=== PATIENT | female | born 1980 | race Caucasian/White ===

== ENCOUNTER → 2016-11-29 | Outpatient (CLI) | payer BC ==
[~2016-11-29] MED LIST: IBUP600T44 PO; PRENTAB26 PO
== END | disposition home or self-care (01) ==
LOC: C.LABSPEC 20:00
PROVIDERS: ATTEND Obstetrics & Gynecology
DX: Z34.83 Encounter for supervision of other normal pregnancy, third trimester (principal)

== ENCOUNTER 2016-12-18 22:41 | Inpatient (IN) | payer BC ==
[~2016-12-18] VITALS: Ht 157.5 cm; Wt 67.5 kg
[2016-12-18] MEDS ORDERED: LACTATED RINGER'S 1000ML 1,000 ML IV PRN (22:47)
[2016-12-18] MEDS ORDERED: LACTATED RINGER'S 1000ML 1,000 ML IV SCH (22:47)
[2016-12-18] MEDS ORDERED: PENICILLIN G POTASSIUM IV 6 MU in DEXTROSE 5% 250ML 250 ML IV ONE (23:00)
[2016-12-18] MEDS ORDERED: PENICILLIN G POTASSIUM IV 3 MU in DEXTROSE 5% 100ML 100 ML IV PRN (23:00)
[2016-12-18] MEDS ORDERED: OXYTOCIN 30 UNITS/500ML NSS IV ONE (23:03)
[2016-12-18 23:06] LABS: MEAN CELL VOLUME 83.7 fL (80-100); MEAN CORPUSCULAR HEMOGLOBIN 29.2 pg (25-34); MEAN PLATELET VOLUME 10.1 fL (7.4-10.4); PLATELET COUNT 195 K/uL (130-400); RED BLOOD COUNT 4.66 M/uL (4.2-5.4); WHITE BLOOD COUNT 14.76 K/uL (4.8-10.8)
[2016-12-18 23:10] LABS: MEAN CORPUSCULAR HGB CONC 34.9 g/dl (32-36)
[2016-12-18] MEDS ORDERED: OXYTOCIN 30 UNITS/500ML NSS IV PRN (23:45)
[2016-12-18] MEDS ORDERED: ACETAMINOPHEN 325 MG TAB PO PRN (23:45)
[2016-12-18] MEDS ORDERED: SUPERCREAM 0.870 % 15GM JAR EXT PRN (23:45)
[2016-12-18] MEDS ORDERED: OXYCODONE/ACETAMINOPHEN 5-325 TAB PO PRN (23:45)
[2016-12-18] MEDS ORDERED: HYDROCORTISONE ACETATE 25 MG SUPP PR PRN (23:45)
[2016-12-18] MEDS ORDERED: LANOLIN OINT EXT PRN ×2 (23:45)
[2016-12-18] MEDS ORDERED: ACETAMINOPHEN/CODEINE 300/30MG TAB PO PRN ×2 (23:45)
[2016-12-19] VITALS (7 sets, daily range): BP systolic 99–121; BP diastolic 63–80; PULSE 82–99; TEMP 36.6–37.3; O2SAT 97–99; Ht 157.5 cm; Wt 67.5 kg
--- NOTE | 2016-12-19 03:29 | DELIVERY SUMMARY ---
DATE OF OPERATION: 12/18/2016 PREOPERATIVE DIAGNOSES: 1. Intrauterine at 39-1/7 weeks. 2. Active labor. POSTEOPERATIVE DIAGNOSES: Same. PROCEDURES: 1. Amniotomy. 2. Normal spontaneous vaginal delivery. 3. Right labial laceration with repair. SURGEON: Dr. Olsen. ANESTHESIA: Infiltration of the labia with local lidocaine. ESTIMATED BLOOD LOSS: 350 mL. PROCEDURE: The patient presented to labor and delivery in active labor thinking she was ruptured. She was checked and found to be 7 cm. She progressed quickly on arrival to complete, complete and +2 station. She began to push and the amniotomy was performed of a 4 bag for clear fluid. The patient was able to push successfully over approximately 15 minutes, delivered a viable male in ROP presentation. Nuchal cord x1 was reduced. The nose and mouth were bulb suctioned and the rest of the was then delivered without difficulty. The nose and mouth were again bulb suctioned and was placed on the maternal abdomen for drying and attention. Cord blood and segment were obtained. Placenta was delivered spontaneously intact with a 3-vessel cord. Cervix, sulci, rectum and perineum were examined and found to be intact. A right labia laceration was repaired with several interrupted sutures of 4-0 Vicryl after infiltrating with local lidocaine. Hemostasis was obtained with diluted Pitocin and fundal massage. Estimated blood loss 350 mL, Apgars 9 and 9. Mother and baby doing well at the end of the delivery. I attest to the content of the Intraoperative Record and any orders documented therein. Any exceptio ns are noted below.
[2016-12-19] MEDS: IBUPROFEN 600 MG TAB PO PRN ×3 (04:08→17:42)
[2016-12-19] MEDS: BENZOCAINE 20% AER SPR 82.5 GM CAN EXT PRN (04:10)
--- NOTE | 2016-12-19 06:46 | Progress Note ---
Subjective Dec 19, 2016. Subjective conversation w/ patient, physical exam, lab review Ambulation: ambulating normally Voiding: no voiding problems Passing Gas: Yes Diet Tolerance: Regular Diet Lochia: Small Feeding Type: Breast Feeding Objective Vital Signs Date Time Temp Pulse Resp B/P Pulse Ox O2 Delivery O2 Flow Rate FiO2 12/19/16 04:30 36.9 82 18 107/76 Room Air 12/19/16 02:30 37.1 97 18 118/67 Room Air 12/19/16 02:30 Room Air Physical Exam General Appearance: WD/WN, NO APPARENT DISTRESS Respiratory/Chest: lungs clear, normal breath sounds Cardiovascular: regular rate, rhythm Abdomen: normal bowel sounds, non tender, soft Fundus: Firm, Non-Tender, Relation to Umbilicus (at u) Extremities: non-tender, normal inspection Laboratory Results Last 24 Hours Test 12/18/16 22:58 12/19/16 04:44 White Blood Count 14.76 K/uL Red Blood Count 4.66 M/uL Hemoglobin 13.6 g/dL Hematocrit 39.0 % Mean Corpuscular Volume 83.7 fL Mean Corpuscular Hemoglobin 29.2 pg Mean Corpuscular Hemoglobin Concent 34.9 g/dl RDW Standard Deviation 41.5 fL RDW Coefficient of Variation 13.7 % Platelet Count 195 K/uL Mean Platelet Volume 10.1 fL Assessment and Plan Post- Day#: 1 Continue Routine Care: Doing well. Routine pp care.
[2016-12-19 06:57] LABS: HEMATOCRIT 34.2 % (37-47)
[2016-12-19] MEDS: DOCUSATE SODIUM 100 MG CAP PO SCH ×2 (09:06→20:00)
[2016-12-19] MEDS: PRENATAL VITAMIN TAB PO SCH (09:07)
--- NOTE | 2016-12-20 07:03 | Progress Note ---
Subjective Dec 20, 2016. Subjective conversation w/ patient, physical exam Ambulation: ambulating normally Voiding: no voiding problems Passing Gas: Yes Diet Tolerance: Regular Diet Lochia: Small Feeding Type: Breast Feeding Pain: No pain reported this morning Review of Systems Constitutional: No chills, No fever Respiratory: No cough, No shortness of breath Cardiac: No chest pain Breast: No breast pain Abdomen: No nausea, No pain, No vomiting Female : No dysuria Objective Vital Signs Date Time Temp Pulse Resp B/P Pulse Ox O2 Delivery O2 Flow Rate FiO2 12/19/16 23:10 36.6 90 16 99/63 97 Room Air 12/19/16 23:10 97 Room Air 12/19/16 19:30 36.8 99 20 111/69 Room Air 12/19/16 15:30 36.8 87 20 119/80 Room Air 12/19/16 15:30 Room Air 12/19/16 11:40 36.7 95 18 121/80 98 Room Air 12/19/16 08:25 Room Air 12/19/16 08:25 37.3 86 16 114/73 99 Room Air Physical Exam General Appearance: WELL-APPEARING, WD/WN, NO APPARENT DISTRESS Respiratory/Chest: lungs clear, normal breath sounds Cardiovascular: regular rate, rhythm, no gallop, no murmur Abdomen: non tender, soft Fundus: Firm, Relation to Umbilicus (1cm below umbilicus) Extremities: no calf tenderness Medications Current Inpatient Medications Medications (Trade) Dose Ordered Sig/Shannan Route Start Time Stop Time Status Last Admin Dose Admin Oxytocin (Pitocin IV) 30 units UD PRN IV 12/18/16 23:45 01/17/17 23:44 Benzocaine (Dermoplast Aero Spr) 1 appln PRN PRN EXT 12/18/16 23:45 01/17/17 23:44 12/19/16 04:10 82.5 APPLN Cocaine HCl (Supercream 0.870% Cr) BID PRN EXT 12/18/16 23:45 01/01/17 23:44 Hydrocortisone Acetate (Anusol Hc Supp) 25 mg BID PRN [place] 12/18/16 23:45 01/17/17 23:44 Lanolin (Lanolin Oint) PRN PRN EXT 12/18/16 23:45 01/17/17 23:44 Prenat Multivit/ [employer]/Iron/Folic Ac ( Vitamin Tab) 1 tab DAILY PO 12/19/16 08:00 01/18/17 07:59 12/19/16 09:07 1 TAB Ibuprofen (Motrin Tab) 600 mg Q4H PRN PO 12/18/16 23:45 01/17/17 23:44 12/19/16 17:42 600 MG Acetaminophen (Tylenol Tab) 650 mg Q6H PRN PO 12/18/16 23:45 01/17/17 23:44 Acetaminophen/ Codeine Phosphate (Tylenol w/ Codeine #3 Tab) 1 tab Q4H PRN PO 12/18/16 23:45 01/17/17 23:44 Acetaminophen/ Codeine Phosphate (Tylenol w/ Codeine #3 Tab) 2 tab Q4H PRN PO 12/18/16 23:45 01/17/17 23:44 Docusate Sodium (coLACE CAP) 100 mg BID PO 12/19/16 08:00 01/18/17 07:59 12/19/16 20:00 100 MG Diphtheria/ Pertussis/Tetanus Vacc (Adacel Inj) 0.5 ml ONCE ONCE IM. 12/20/16 09:00 12/20/16 09:01 Assessment and Plan Post- Day#: 2 Continue Routine Care: - Vital Signs reviewed and WNL (temp max 36.6) - GBS Positive - Patient doing well clinically - Encourage Ambulation today - Tolerating PO Diet - Pain well controlled Resident Physician Supervision Note: I interviewed and examined the patient. Discussed with Dr. Zarco and agree with findings and plan as documented in the note. Any exceptions or clarifications are listed here: PPD#2, doing well. Discharge today. Documented By: Radha Bell
--- NOTE | 2016-12-20 07:09 | Discharge Instructions ---
Discharge Instructions Admission Reason for Admission: Check Rupture Membrane Discharge Discharge Diagnosis / Problem: Vaginal Delivery Discharge Goals Goal(s): Routine recovery after delivery Medications Continue Dispensed Medications: supercream, dermaplast, tucks, lansinoh Activity Recommendations Activity Limitations: per Instructions/Follow-up section . Instructions / Follow-Up Instructions / Follow-Up ACTIVITY RECOMMENDATIONS: * Gradual return to full activity over the next 2-3 weeks. * No lifting - nothing heavier than baby over the next 2-3 weeks. * Do not engage in vigorous exercise, sexual activity or sports until cleared by your physician. * Do not drive or operate any motorized equipment until cleared by your physician. * You may shower/bathe daily. MEDICATIONS: For discomfort or pain, you may use Acetaminophen (Tylenol), Ibuprofen (Advil), or Naproxen (Aleve) following the package directions. For constipation you may use Colace following the package directions. BREAST CARE: If you are not breast feeding: * Wear a supportive bra 24 hours a day for one to two weeks. * Avoid stimulating your breasts and nipples as much as possible during the first few weeks after delivery. * When taking a shower, have the warm water hit your back, not breasts. * When your breasts feel full, apply ice packs. Usually three to four times a day helps ease the discomfort. * Take a mild pain medication (Tylenol / Motrin) when you are uncomfortable. If breast feeding: * Use breast milk to lubricate nipples. Lansinoh cream may be used for sore nipples. You do not need to remove cream prior to breast feeding. If using a different brand of cream, check the label for directions regarding removal of cream prior to nursing. * Wear a supportive bra. * If having problems with breasts or breast feeding, call a oncology consultant or your health care provider. EPISIOTOMY CARE: After delivery, if you have an episiotomy (stitches), the following steps will ease discomfort and aid healing. * For the first 24 hours after delivery, place ice packs next to your episiotomy to help reduce swelling. * After the first 24 hour-period, sitz baths, either portable or in the tub, are suggested. A shower with a shower arm sprayed over the episiotomy may be comforting. * [place] care should be done after each voiding and bowel movement. Squirt warm water from a plastic bottle over the perineum (region of the body between the anus and urinary opening) and pat dry. * Use Dermoplast to ease discomfort. Shake container. [place] directly over the episiotomy. Place a Tucks on a clean sanitary pad next to your episiotomy. SPECIAL CARE INSTRUCTIONS: When you are discharged from the hospital, it is important for you to follow the instructions listed below: * During the first week at home, you should be able to care for yourself and your baby. In addition, the usual light household activities are encouraged. * Limit your activities to the way you feel. Do not try to clean the house or move furniture. Be sensible. * If you actively engage in sports and have done so up until the time of your delivery, you may resume these activities as soon as you feel able. This may take up to one month or even longer. Use good judgment. * Continue to take your vitamins for at least six weeks after the of your baby. * Your diet need not be limited unless you were on a special diet before your delivery. Breast-feeding mothers need around 2500 calories per day and at least 64-80 ounces of fluid per day (8 to 10 glasses). * You should eat foods from the four major food groups. Crash diets or fad diets are to be avoided. Eating lean meats, fresh fruits and vegetables, low-fat dairy products, high fiber foods and a regular exercise program, will help you get back to your pre- weight without putting your health at risk. * Constipation is sometimes a problem after delivery. Take a mild laxative as needed. If breast feeding, Milk of Magnesia is acceptable to use. You may use a suppository or Fleets enema if no episiotomy. * A daily shower or tub bath is suggested. Be sure to thoroughly and gently dry the perineum. * A bloody vaginal discharge will usually continue until around four weeks post . A small amount of bleeding may continue for as long as six weeks. Vaginal discharge changes from the bright red bleeding after delivery to pink then brownish and finally yellowish-pink before becoming white and disappearing. * Bleeding may increase with activity. Your first period may come in 4-8 weeks. If you are breast feeding, your period may be delayed even longer. * [place] (sex) can begin whenever both you and your partner feel comfortable and do not have any form of genital infection. It is recommended that you wait at least six weeks for internal and external healing to occur. If you have questions, please talk to your health care practitioner. A condom should be used to prevent infection and . * Foreplay, gentle intercourse and lubrication is very important the first several times to prevent pain. A water-based lubricant such as K-Y jelly or Astroglide may be used. * If you have RH negative blood and your baby is RH positive, you will receive RHOGAM by injection prior to discharge. The nurse will give you a card to keep with you that has the date and place that you received RHOGAM after delivery. * During your care, you had a Rubella screen done to check for the presence of rubella antibodies in your blood. If your test was negative, you will receive a Rubella vaccine prior to discharge. This vaccine may cause a fever, soreness at the injection site and flu-like symptoms. If these symptoms persist, notify your health care practitioner. is not advised for one month after a Rubella vaccine. * Verbalizes understanding of car seat law as reviewed with patient nursing. * Car Seat hand-out given and reviewed with patient by nursing. * Shaken baby information reviewed with patient by nursing. Call you doctor if: * Heavy bleeding (saturating several pads an hour) or passing clots the size of your fist. * A fever >101 degrees F (38.3 degrees C) on two occasions four hours apart and /or chills. * Unusual pain in the pelvic or vaginal areas. * "Baby Blues" lasting longer than two weeks. If you have any questions or concerns, call your health care practitioner at . FOLLOW UP VISIT: * Please call the office at to schedule a 6 week examination. It is important you keep this appointment. It is important for you to make arrangements for either yearly or twice yearly check-ups thereafter. Current Hospital Diet Patient's current hospital diet: Regular OB Diet Discharge Diet Recommended Diet: Regular Diet Pending Studies Studies pending at discharge: no Medical Emergencies . Who to Call and When: Medical Emergencies: If at any time you feel your situation is an emergency, please call 911 immediately. . Non-Emergent Contact Non-Emergency issues call your: [employer] . . "Provider Documentation" section prepared by Agustin Zarco. VTE Core Measure Inpt VTE Proph given/why not?: Treatment not indicated
[2016-12-20 08:50] VITALS: BP 129/79; PULSE 103; TEMP 36.8; O2SAT 98
[2016-12-20] MEDS: DOCUSATE SODIUM 100 MG CAP PO SCH ×2 (08:56→20:21)
[2016-12-20] MEDS: PRENATAL VITAMIN TAB PO SCH (08:56)
[2016-12-20] MEDS: IBUPROFEN 600 MG TAB PO PRN ×2 (08:57→19:29)
[2016-12-20] MEDS ORDERED: DIPHTHERIA/TETANUS/PERTUSSIS 0.5 ML SYR/VIAL IM. ONE (09:00)
[2016-12-20 15:20] VITALS: BP 120/77; PULSE 86; TEMP 37; O2SAT 98
[2016-12-20 18:20] VITALS: BP 111/72; PULSE 84; TEMP 36.8; O2SAT 98
[2016-12-20 23:45] VITALS: BP 106/66; PULSE 81; TEMP 36.8
--- NOTE | 2016-12-21 06:54 | Progress Note ---
Subjective Dec 21, 2016. Subjective conversation w/ patient, physical exam Ambulation: ambulating normally Voiding: no voiding problems Passing Gas: Yes Diet Tolerance: Regular Diet Lochia: Small Feeding Type: Breast Feeding Pain: RLQ Abdominal Pain with BMs, Improving since yesterday Review of Systems Constitutional: No chills, No fever Respiratory: No cough, No shortness of breath Cardiac: No chest pain Breast: No breast pain Abdomen: No nausea, No pain, No vomiting Female : No dysuria Objective Vital Signs Date Time Temp Pulse Resp B/P Pulse Ox O2 Delivery O2 Flow Rate FiO2 12/20/16 23:45 36.8 81 18 106/66 Room Air 12/20/16 23:45 Room Air 12/20/16 18:20 36.8 84 20 111/72 98 Room Air 12/20/16 15:20 37.0 86 20 120/77 98 Room Air 12/20/16 15:20 98 Room Air 12/20/16 08:50 98 Room Air 12/20/16 08:50 36.8 103 20 129/79 98 Room Air Physical Exam General Appearance: WELL-APPEARING, WD/WN, NO APPARENT DISTRESS Respiratory/Chest: lungs clear, normal breath sounds Cardiovascular: regular rate, rhythm, no gallop, no murmur Abdomen: non tender, soft Fundus: Firm, Relation to Umbilicus (1cm below) Extremities: no calf tenderness Medications Current Inpatient Medications Medications (Trade) Dose Ordered Sig/Shannan Route Start Time Stop Time Status Last Admin Dose Admin Oxytocin (Pitocin IV) 30 units UD PRN IV 12/18/16 23:45 01/17/17 23:44 Benzocaine (Dermoplast Aero Spr) 1 appln PRN PRN EXT 12/18/16 23:45 01/17/17 23:44 12/19/16 04:10 82.5 APPLN Cocaine HCl (Supercream 0.870% Cr) BID PRN EXT 12/18/16 23:45 01/01/17 23:44 Hydrocortisone Acetate (Anusol Hc Supp) 25 mg BID PRN [place] 12/18/16 23:45 01/17/17 23:44 Lanolin (Lanolin Oint) PRN PRN EXT 12/18/16 23:45 01/17/17 23:44 Prenat Multivit/ [place]/Iron/Folic Ac ( Vitamin Tab) 1 tab DAILY PO 12/19/16 08:00 01/18/17 07:59 12/20/16 08:56 1 TAB Ibuprofen (Motrin Tab) 600 mg Q4H PRN PO 12/18/16 23:45 01/17/17 23:44 12/20/16 19:29 600 MG Acetaminophen (Tylenol Tab) 650 mg Q6H PRN PO 12/18/16 23:45 01/17/17 23:44 Acetaminophen/ Codeine Phosphate (Tylenol w/ Codeine #3 Tab) 1 tab Q4H PRN PO 12/18/16 23:45 01/17/17 23:44 Acetaminophen/ Codeine Phosphate (Tylenol w/ Codeine #3 Tab) 2 tab Q4H PRN PO 12/18/16 23:45 01/17/17 23:44 Docusate Sodium (coLACE CAP) 100 mg BID PO 12/19/16 08:00 01/18/17 07:59 12/20/16 20:21 100 MG Assessment and Plan Post- Day#: 3 Continue Routine Care: Resident Physician Supervision Note: I interviewed and examined the patient. Discussed with Dr. Zarco and agree with findings and plan as documented in the note. Any exceptions or clarifications are listed here: [None] Documented By: Yuridia Haro - Vital Signs reviewed and WNL (temp max 36.8) - GBS Positive - Patient doing well clinically - Encourage Ambulation today - Tolerating PO Diet - Moderate abdominal pain with straining when passing stool, improved today with improved posture and strength, may benefit from abdominal binder - Discharge today
[2016-12-21] MEDS: IBUPROFEN 600 MG TAB PO PRN (06:59)
[2016-12-21] MEDS: BENZOCAINE 20% AER SPR 82.5 GM CAN EXT PRN (08:24)
[2016-12-21] MEDS: DOCUSATE SODIUM 100 MG CAP PO SCH (08:25)
[2016-12-21] MEDS: PRENATAL VITAMIN TAB PO SCH (08:25)
[2016-12-21 08:30] VITALS: BP 118/76; PULSE 80; TEMP 36.7
[2016-12-21 11:43] VITALS: BP_DIAS 76; PULSE 80; TEMP 36.7
== END 2016-12-21 11:55 | disposition home or self-care (01) | DRG 775 ==
LOC: C.OPB 22:41 → C.LD 22:41 → C.OPB 22:49 → C.OBG 12-19 02:24
PROVIDERS: ADMIT Obstetrics & Gynecology; ATTEND Obstetrics & Gynecology
PROC: 10E0XZZ Delivery of Products of Conception, External Approach (ICD-10-PCS; principal; 2016-12-18)
PROC: 0UQMXZZ Repair Vulva, External Approach (ICD-10-PCS; principal; 2016-12-18)
DX: O70.0 First degree perineal laceration during delivery (principal); O09.523 Supervision of elderly multigravida, third trimester; O69.81X0 Labor and delivery complicated by cord around neck, without compression, not applicable or unspecified; Z37.0 Single live birth; Z3A.39 39 weeks gestation of pregnancy

== ENCOUNTER → 2017-01-17 | Outpatient (CLI) | payer BC ==
[~2017-01-17] MED LIST changes: -IBUP600T44 PO
== END | disposition home or self-care (01) ==
LOC: C.PAPS 08:31
PROVIDERS: ATTEND Obstetrics & Gynecology
DX: Z01.419 Encounter for gynecological examination (general) (routine) without abnormal findings (principal); Z11.51 Encounter for screening for human papillomavirus (HPV)